=== PATIENT | male | born 2000 | race Caucasian/White ===

== ENCOUNTER 2020-03-05 06:46 | Day surgery (SDC) | payer MEDICAID ==
[~2020-03-05] VITALS: Ht 182.9 cm; Wt 87.6 kg
[~2020-03-05 06:46] MED LIST: CETI10TA26 PO; CITA40TA5 PO
[2020-03-05] MEDS ORDERED: LACTATED RINGERS 1,000 ML IV SCH (07:01)
[2020-03-05] MEDS ORDERED: CHLORHEXIDINE 15 ML UDC MM STA (07:01)
[2020-03-05 07:15] VITALS: BP 123/77
[2020-03-05] MEDS ORDERED: FENTANYL PF 100 MCG/2ML ONE (08:13)
[2020-03-05] MEDS ORDERED: MIDAZOLAM 1 MG/ML, 2ML ONE (08:14)
[2020-03-05] MEDS ORDERED: PROMETHAZINE 25 MG/ML, 1ML IVPush PRN (08:30)
[2020-03-05] MEDS ORDERED: MEPERIDINE/PF 25MG/0.5ML IVPush PRN (08:30)
[2020-03-05] MEDS ORDERED: MIDAZOLAM 1 MG/ML, 2ML IV PRN (08:30)
[2020-03-05] MEDS ORDERED: OXYcodone 5 MG/5 ML ORAL.SOL UDC PO PRN (08:30)
[2020-03-05] MEDS ORDERED: ACETAMINOPHEN 325 MG TABLET PO PRN (08:30)
[2020-03-05] MEDS ORDERED: FENTANYL PF 100 MCG/2ML IV PRN (08:30)
[2020-03-05] MEDS ORDERED: BUPIVACAINE/PF-EPI 0.5% 1:200K ONE (08:53)
[2020-03-05] MEDS ORDERED: DEXAMETHASONE 4 MG/ML, 1ML ONE (09:18)
[2020-03-05] MEDS ORDERED: PROPOFOL 10 MG/ML, 20ML ONE (09:18)
[2020-03-05] MEDS ORDERED: ONDANSETRON 2MG/ML, 2ML ONE (09:18)
[2020-03-05] MEDS ORDERED: LIDOCAINE-MPF 2% ,5ML ONE (09:18)
[2020-03-05] MEDS ORDERED: CEFAZOLIN 1,000 MG ONE (09:18)
[2020-03-05] MEDS ORDERED: KETOROLAC 30 MG/1 ML ONE (09:18)
[2020-03-05] MEDS ORDERED: BACITRACIN OINT 500U/GM, 15 GM ONE (09:37)
== END 2020-03-05 11:40 | disposition home or self-care (01) ==
LOC: OUT 06:46
PROVIDERS: ATTEND Podiatrist Foot & Ankle Surgery
DX: B07.0 Plantar wart (principal); Z11.59 Encounter for screening for other viral diseases; F32.9 Major depressive disorder, single episode, unspecified; Z79.899 Other long term (current) drug therapy
CPT/HCPCS: 17111; 88305; J0690; J1100; J1885; J2250; J2405; J2704; J3010; J7120; U0001